=== PATIENT | female | born 1990 | race Caucasian/White ===

== ENCOUNTER 2020-04-02 19:50 | Emergency (ER) | payer MEDICAID ==
[~2020-04-02] VITALS: Ht 152.4 cm; Wt 69.4 kg
[2020-04-02 19:58] VITALS: BP 137/76
--- NOTE | 2020-04-02 20:01 | NUR ---
TO ER BED 6
--- NOTE | 2020-04-02 20:05 | NUR ---
PT ASSESSMENT COMPLETE. PT SEATED UPRIGHT IN BED TO A/W MEDICAL EVAULATION. WILL CONTINUE TO MONITOR.
[2020-04-02] MEDS ORDERED: BACITRACIN OINT 500 UNITS/GM PKT TP ONE (20:20)
[2020-04-02 20:42] VITALS: BP 137/76
== END 2020-04-02 20:42 | disposition home or self-care (01) ==
LOC: MED 19:50
DX: S81.012A Laceration without foreign body, left knee, initial encounter (principal); W22.8XXA Striking against or struck by other objects, initial encounter; Y93.89 Activity, other specified; Y92.89 Other specified places as the place of occurrence of the external cause; Y99.8 Other external cause status
CPT/HCPCS: 90471; 90715; 99283